=== PATIENT | female | born 1990 | race African-American/Black ===

== ENCOUNTER 2019-12-01 23:06 | Emergency (ER) | payer BC ==
[~2019-12-01] VITALS: Ht 165.1 cm; Wt 80.3 kg
[2019-12-01 23:14] VITALS: BP 149/91
[2019-12-01] MEDS ORDERED: LIDOCAINE 1%-EPI 1:100,000 20 ML VIAL ONE (23:21)
[2019-12-01] MEDS ORDERED: LIDOCAINE 1%-EPI 1:100,000 20 ML VIAL TP ONE (23:30)
--- NOTE | 2019-12-01 23:30 | NUR ---
DR MCKEON AT BED SIDE FOR I&D
--- NOTE | 2019-12-01 23:42 | NUR ---
Patient discharged to home in stable condition. Written and verbal after care instructions given. Patient verbalizes understanding of instruction.
== END 2019-12-01 23:45 | disposition home or self-care (01) ==
LOC: ER 23:12
DX: L02.211 Cutaneous abscess of abdominal wall (principal)
CPT/HCPCS: 10060; 99283; A6253; A6407; J3490

== ENCOUNTER 2020-01-08 09:08 | Emergency (ER) | payer BC ==
[~2020-01-08] VITALS: Ht 165.1 cm; Wt 77.1 kg
--- NOTE | 2020-01-08 09:18 | NUR ---
PT C/O SHORTNESS OF BREATH GENERALIZED WEAKNESS, CHILLS FOR THE PAST 3 DAYS. WAS POSITIVE FOR COVID19 YESTERDAY.STABLE VITALS. AWAITING MD CRESPO
[2020-01-08] MEDS ORDERED: ACETAMINOPHEN ES 500 MG TABLET PO ONE (09:30)
--- NOTE | 2020-01-08 09:30 | NUR ---
dr marc at bedside for eval.
[2020-01-08] MEDS ORDERED: ACETAMINOPHEN ES 500 MG TABLET ONE (09:32)
[2020-01-08 11:35] LABS: BASOPHILS % (AUTO) 1.2 % (0.0-2.0); EOSINOPHILS % (AUTO) 1.4 % (0.0-6.0); HEMATOCRIT 34 % (33-45); HEMOGLOBIN 10.7 g/dL (11.5-14.8); LYMPHOCYTES # (AUTO) 0.9 /CMM (0.8-4.8); LYMPHOCYTES % (AUTO) 46.7 % (20.0-44.0); MEAN CORPUSCULAR HGB CONC 31 g/dl (31.0-36.0); MEAN CORPUSCULAR VOLUME 78 fL (82-100); MONOCYTES # (AUTO) 0.2 /CMM (0.1-1.30); MONOCYTES % (AUTO) 12.5 % (2.0-12.0); NEUTROPHILS # (AUTO) 0.7 /CMM (1.8-8.9); NEUTROPHILS % (AUTO) 38.2 % (43.0-81.0); PLATELET COUNT (AUTO) 106 /CMM (150-450); RED BLOOD CELL COUNT(AUTO) 4.41 MIL/uL (4.0-5.2)
[2020-01-08 11:42] LABS: CALCIUM, SERUM 8.5 mg/dL (8.5-10.1); CARBON DIOXIDE 26 mmol/L (21-32); CHLORIDE 105 mmol/L (98-107); CREATININE 0.8 mg/dL (0.6-1.3); GLUCOSE 79 mg/dL (74-106); SODIUM SERUM 137 mmol/L (136-145); UREA NITROGEN, BLOOD 8 mg/dL (7-18)
[2020-01-08 11:44] LABS: WHITE BLOOD COUNT (AUTO) 1.9 K/uL (4.3-11.0)
--- NOTE | 2020-01-08 12:45 | NUR ---
Patient discharged to home in stable condition. Written and verbal after care instructions given. Patient verbalizes understanding of instruction.
[2020-01-08 12:46] VITALS: BP 128/74
[2020-01-08 23:18] LABS: EOSINOPHILS % (MANUAL) 1 % (0-4); LYMPHOCYTES % (MANUAL) 40 % (16-48); MONOCYTES % (MANUAL) 9 % (0-11.0); NEUTROPHILS % (MANUAL) 50 (42-76)
== END 2020-01-08 12:46 | disposition home or self-care (01) ==
LOC: ER 09:08
DX: U07.1 COVID-19 (principal); R50.9 Fever, unspecified; R06.02 Shortness of breath; D72.819 Decreased white blood cell count, unspecified
CPT/HCPCS: 36415; 71045-TC; 80048-TC; 84484-TC; 84703-TC; 85025-TC